=== PATIENT | female | born 2000 | race Caucasian/White ===

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

== ENCOUNTER 2020-12-14 14:39 | Inpatient (IN) ==
--- NOTE | 2020-12-14 14:55 | History & Physical Report ---
Date of Service December 14, 2020 Assessment & Plan (1) Encounter for induction of labor: 20 y/o at 39w6d (ultrasound) who presents for elective induction for IUGR. GDM. O neg. Rubella immune. GBS pos. - vitals reviewed, stable - sent from office today. EFW 21%, AC 5% (therefore IUGR), and fluid 4.9cm. head-sparing IUGR. recommended delivery >39wks. reactive NST in office. - category 1 tracing - LR 125 mL/hr - patient would like to attempt w/o epidural at first - balloon dilation performed at 1545 for unfavorable cervix - induce w/ pitocin. 1+1. - @1602: pitocin rate is at 1 mL/hr - AROM if appropriate (2) Gestational diabetes: - failed 1 hr GTT at 37 wks. 2 hr GTT 75 gram load. 213H at 1 hr. 141 at 2 hr. (11/20/20) - missed GDM dietary appointment - BSG 80 on admission - will check BSG q2h (3) Carrier of group B Streptococcus: - penicillin G ordered. 6 mu IV now dose and 3 mu IV q4h (4) Poor patient attendance of care: - patient has missed several appointments, attributes to transportation and weather - CYS has requested notification of delivery (5) Encounter for screening for COVID-19: - 12/14/20 covid neg Admission and Anticipated Discharge Date Admission Date: December 14, 2020 History of Present Illness Primary Care Provider: Mehdi Barger DO Clemencia Beckford is a 20 y/o female at 39w6d (ultrasound) who presents for elective induction for IUGR. GDM. GBS pos. complicated by GDM and GBS pos. + contractions; + movement; - fluid loss; - bloody show Labs: (06/19/20) Blood type: O neg Antibody screen: neg (11/22/20) H.2 (today) Hct: 35.2 (today) WBC: 12.79 (today) Plt: 157 (today) Rubella: immune RPR: nonreactive Gonorrhea: not detected Chlamydia: not detected HIV: neg HbSAg: neg GBS: pos (11/20/20) 1 hr GTT 50 gram load: 97 (07/29/20) 1 hr GTT 50 gram load: 173H (11/04/20) 2 hr GTT 75 gram load. 213H at 1 hr. 141 at 2 hr. (11/20/20) Other screens: -declines genetic screening Allergies Allergy/AdvReac Type Severity Reaction Status Date / Time No Known Drug Allergies Allergy Unknown NKDA Verified 12/14/20 13:36 Home Medications Medication Instructions Recorded Confirmed Type albuterol sulfate 90 mcg/actuation 2 puff INHALATION Q6H PRN 06/17/20 12/14/20 History aerosol inhaler prenat.vits,buddy,[id number] 1 tab PO DAILY 06/17/20 12/14/20 History Patient History Medical History Asthma Albuterol as needed Surgical History S/P cholecystectomy S/P wisdom tooth extraction Family History (Updated 12/14/20 @ 15:53 by Zane Powers MD) Grandmother (Maternal) Diabetes Father Hypertension Multiple sclerosis Hodgkin lymphoma Social History (Updated 12/14/20 @ 14:58 by Shakila Santos RN) Smoking Status: Never smoker Hx Alcohol Use: No Hx Substance Use: No Preferred Language: Stateless Communication Ability: Effective Visual Impairment: No Limitations Hearing Ability: Normal Beliefs That Will Affect Care: None marital status: Single marital status details: Shimon Frazier (35) [phone] Current Living Situation: Significant Other Current Living Situation Comment: The patient lives with her boyfriend and his mother. current occupational status: employed current occupation: [employer] Other Information That Helps Us Care for You: No Feels Safe at Home: Yes Safety Concerns: Feels Safe At This Time OB History g1--08/08, 41 weeks, vavd for maternal exhaustion after 2+hour push g2--01/08, 7 weeks, sab COOK MORNING History no abnl paps, stds. Review of Systems Denies fever, chills, sweats Denies shortness of breath, difficulty breathing, chest pain, palpitations, chest pressure. Denies breast pain. Denies dysuria. Denies headache. Denies nausea/vomiting. Denies weakness. + mild intermittent paresthesias in hands, not new and has had prior to Physical Exam Physical Exam: General: Alert, oriented. No acute distress. Cardiac: Regular rate and rhythm, no murmurs/rubs/gallops. Respiratory: Clear to auscultation bilaterally, no wheezes/rales/rhonchi. No increased work of breathing. Symmetrical chest rise. No respiratory distress. Abdomen: Gravid; nontender to light palpation Pelvic: Dilation loose 1 cm; Effacement 75%; Station -1 cm. Soft. Mid. Head. efw 6-[address] Billy. Lower Extremities: No lower extremity edema or swelling. No deep calf pain. Valarie's negative bilaterally Monitoring External Monitor Reviewed at 1535. External FHT and external uterine monitors used; Category I tracing; moderate FHT variability. baseline 130. + accels. No late or variable decels. Tocodynamometer Reviewed at 1535. contractions q4-6min Supervising Physician Co-Signing Physician Notes Resident Physician Supervision Note: I interviewed and examined the patient. Discussed with Dr. Powers and agree with findings and plan as documented in the note. Any exceptions or clarifications are listed here: Patient at 39 weeks with small ac most consistent with iugr, poorly treated gdm, gbs +, limited pnc. [place] planned with pitocin. arom as needed. epidural on demand. Anticipate . Category one strip. CYS notified on admission per their requesting email to the department. Documented By: Katie Billy MD, FACOG Resident Activity Tracking Resident Involvement: Resident Care Provided Care Provided: OB Delivery
[2020-12-14] MEDS ORDERED: OXYTOCIN 30 UNITS/500 ML BAG IV PRN ×3 (14:58→15:54)
[2020-12-14] MEDS ORDERED: PENICILLIN G POTASSIUM 6 MU in DEXTROSE 5% 250 ML IV STA (15:00)
[2020-12-14 15:17] LABS: Hematocrit (blood only) 35.2 % (37-47); Hemoglobin 12.2 g/dL (12.0-16.0); Mean Corpuscular Hemoglobin 31.8 pg (25-34); Mean Corpuscular Hgb Conc 34.7 g/dL (32-36); Mean Corpuscular Volume 91.7 fL (80-100); Mean Platelet Volume 13.4 fL (7.4-10.4); Platelet Count 157 K/uL (130-400); RDW Coefficient of Variation 13.8 % (11.5-14.5); RDW Standard Deviation 45.5 fL (36.4-46.3); Red Blood Count 3.84 M/uL (4.2-5.4); White Blood Count 12.79 K/uL (4.8-10.8)
[2020-12-14] MEDS: LACTATED RINGER'S 1,000 ML IV PRN ×2 (15:31→23:01)
--- NOTE | 2020-12-14 17:00 | Labor Progress Brief Note ---
Date of Service December 14, 2020 Subjective ready for bazzi Assessment & Plan (1) Encounter for induction of labor: Admission and Anticipated Discharge Date Admission Date: December 14, 2020 Inducing patient secondary to small AC at 5% and uncontrolled GDM. Patient expresses understanding of need for induction. Discussed why I think cervical ripening important. Will also start pitocin. Discussed that could just start pit but think it will go faster with both. Patient notes she would like to labor as long as she can unmedicated. Fetus is category one. Anticipate . Physical Exam Constitutional: WD/WN, vitals as above Psychiatric: A+Ox3, euthymic affect Genitourinary: cx--/-2 speculum placed and cx visualized, bazzi placed through the cervix and balloon inflated with 30cc of sterile water. patient tolerated well efm--120s with mod variability, accels to 150s, no decels toco--occasional contraction Results & Data ([facility]) Vital Signs (Past 12 Hours) Vital Signs Temp Pulse Resp BP 12/14/20 16:46 67 117/73 12/14/20 16:04 64 111/58 L 12/14/20 14:59 36.9 C 20 12/14/20 14:52 84 113/62 Coding Level of Care Code None Diagnoses Encounter for induction of labor Z34.90
[2020-12-14] MEDS: PENICILLIN G POTASSIUM 3 MU in DEXTROSE 5% 100 ML IV PRN ×2 (19:14→23:04)
--- NOTE | 2020-12-14 20:02 | Labor Progress Brief Note ---
Date of Service December 14, 2020 Subjective More uncomfortable with contractions. bulb fell out a few hours ago when going to the [facility]. Assessment & Plan (1) Encounter for induction of labor: Admission and Anticipated Discharge Date Admission Date: December 14, 2020 Explained to the FOB the reasoning behind the induction. fetus category one. offered continued pitocin as doing, arom now or later. consider ep idural--before or after arom. No hunt for anything but could more actively manage labor if she wants. They are considering her options. Physical Exam Constitutional: WD/WN, vitals as above Psychiatric: A+Ox3, euthymic affect Genitourinary: cx--380/-2 toco--q2-3min, pit at 6 efm--120s with mod variability, accels to 150s, no decels does not tolerate exam well. Results & Data ([facility]) Vital Signs (Past 12 Hours) Vital Signs Temp Pulse Resp BP 12/14/20 19:10 37.1 C 65 20 112/63 12/14/20 18:18 93 H 18 110/59 L 12/14/20 17:49 75 20 120/75 12/14/20 16:46 67 18 117/73 12/14/20 16:04 64 18 111/58 L 12/14/20 14:59 36.9 C 20 12/14/20 14:52 84 113/62 Coding Level of Care Code None Diagnoses Encounter for induction of labor Z34.90
[2020-12-14] MEDS ORDERED: ePHEDrine sulfate 50 MG/ML AMP ONE (20:13)
[2020-12-14] MEDS ORDERED: SODIUM CHLORIDE 0.9% INJ 10 ML VIAL ONE (20:13)
[2020-12-14] MEDS ORDERED: BUPIVACAINE 0.25% 30 ML VIAL ONE (20:13)
[2020-12-14] MEDS ORDERED: fentaNYL citrate 100 MCG/2 ML VIAL ONE (20:14)
[2020-12-14] MEDS ORDERED: fentaNYL 2MCG/ML ROPIVACAINE 1.25MG/ML 100 ML BAG EPI ONE (20:14)
--- NOTE | 2020-12-14 21:25 | Anesthesiology Consultation ---
Date of Service December 14, 2020 Assessment & Plan (1) Encounter for pre-operative examination: Chart Review Chart Review: Acceptable Risk for Labor Epidural Consults Requested none ASA ASA2 Proposed Anesthesia Anesthesia Type: Labor Epidural Risk / Benefits Reviewed With: PT / POA / Parent / Guardian, Accepts Plan and Informed Consent Obtained History Height/Weight Height: 5 ft Weight: 74.389 kg Allergies Allergy/AdvReac Type Severity Reaction Status Date / Time No Known Drug Allergies Allergy Unknown NKDA Verified 12/14/20 13:36 Medications Home Medications Medication Instructions Recorded Confirmed Last Taken albuterol sulfate 90 mcg/actuation 2 puff INHALATION Q6H PRN 06/17/20 12/14/20 Unknown aerosol inhaler prenat.vits,buddy,jld-whrv-hufdk 1 tab PO DAILY 06/17/20 12/14/20 12/11/20 Active Medications Generic Name Dose Route Start Last Admin Trade Name Freq PRN Reason Stop Dose Admin Penicillin G Potassium 3 mu/ 106 mls @ 100 mls/hr 12/14/20 15:00 12/14/20 20:25 Dextrose IV 12/24/20 14:59 Infused Q4H PRN Infusion Give until delivery Lactated Ringer's 1,000 mls @ 125 mls/hr 12/14/20 14:58 12/14/20 19:17 Lr IV 12/16/20 14:57 125 mls/hr .Q8H PRN Infusion L&D Protocol Protocol Oxytocin 30 units in 500 mls @ 6 mls/hr 12/14/20 15:54 12/14/20 19:50 Pitocin IV 12/16/20 15:53 0.36 units/hr .Q24H PRN 6 mls/hr Labor Induction/Augmentation Titration Protocol 0.36 UNITS/HR Past Medical History Medical History Asthma Albuterol as needed Exercise / Class Metabolic Activity II 4-5 Yardwork/Stairs/Walk up hill Past Family History Family History Grandmother (Maternal) Diabetes Father Hypertension Multiple sclerosis Hodgkin lymphoma Past Surgical History Surgical History S/P cholecystectomy S/P wisdom tooth extraction Past Anesthesia History No Hx of Anesthesia Complications and No Family Hx of Anesthesia Complications History of PONV No Hx of PONV and No Hx of Motion Sickness Social History Smoking Status: Never smoker Hx Alcohol Use: No Hx Substance Use: No Physical Exam Vital Signs Last Vital Signs Temp 98.8 F 12/14/20 19:10 Pulse 90 12/14/20 21:19 Resp 18 12/14/20 20:19 BP 123/57 L 12/14/20 20:19 Pulse Ox 98 12/14/20 21:19 ENMT Mouth: no dentition abnormality Thyromental Distance: > or= 3.5 Finger Breadths Mallampati Class: II Neck normal visual inspection Respiratory normal respiratory effort Auscultation: lungs clear to auscultation bilaterally Cardiovascular Rate/Rhythm: regular rate and regular rhythm Testing Laboratory Results 12/14/20 15:07 12/14/20 12/14/20 12/14/20 21:12 19:13 17:04 POC Glucose 80 74 80 12/14/20 15:13 POC Glucose 80
[2020-12-14] MEDS ORDERED: diphenhydrAMINE 50 MG/ML VIAL IV PRN (21:48)
[2020-12-14] MEDS ORDERED: ONDANSETRON INJ 2 MG/ML 2 ML VIAL IV PRN (21:48)
[2020-12-14] MEDS ORDERED: NALOXONE HCL 0.4 MG/1 ML VIAL/CARP IV PRN (21:48)
[2020-12-14] MEDS ORDERED: fentaNYL 2MCG/ML ROPIVACAINE 1.25MG/ML 100 ML BAG EPI PRN (21:48)
[2020-12-14] MEDS ORDERED: ePHEDrine sulfate 50 MG/ML AMP IV PRN (21:48)
[2020-12-14] MEDS ORDERED: NALOXONE HCL 1 MG in SODIUM CHLORIDE 0.9% 1000ML 1,000 ML IV PRN (21:48)
--- NOTE | 2020-12-14 23:00 | Labor Progress Brief Note ---
Date of Service December 14, 2020 Subjective comfortable with epidural Assessment & Plan (1) Encounter for induction of labor: Admission and Anticipated Discharge Date Admission Date: December 14, 2020 continue current management. fetus category one. anticipate . Physical Exam Constitutional: WD/WN, vitals as above Psychiatric: A+Ox3, euthymic affect Genitourinary: cx--4/80/-2 arom--clear toco--q2-4min, pit at 8 efm--130s with mod variability, accels to 170s, no decels Results & Data ([facility]) Vital Signs (Past 12 Hours) Vital Signs Temp Pulse Resp BP Pulse Ox 12/14/20 22:54 67 100 12/14/20 22:49 71 100 12/14/20 22:47 65 97/56 L 12/14/20 22:45 73 85/48 L 12/14/20 22:44 61 98 12/14/20 22:39 67 98 12/14/20 22:34 63 99 12/14/20 22:30 16 12/14/20 22:29 53 L 126/69 100 12/14/20 22:25 56 L 90/54 L 12/14/20 22:24 77 98 12/14/20 22:21 57 L 89/55 L 12/14/20 22:19 73 98 12/14/20 22:14 70 99/51 L 98 12/14/20 22:11 65 98/53 L 12/14/20 22:09 61 98 12/14/20 22:04 83 98/57 L 99 12/14/20 22:01 61 95/55 L 12/14/20 22:00 16 12/14/20 21:59 76 98 12/14/20 21:54 61 16 97/56 L 98 12/14/20 21:52 77 18 107/55 L 12/14/20 21:50 96 H 16 105/60 12/14/20 21:49 96 H 99 12/14/20 21:48 67 16 103/58 L 12/14/20 21:45 92 H 18 116/63 91 12/14/20 21:44 72 98 12/14/20 21:40 72 18 117/60 12/14/20 21:39 71 99 12/14/20 21:34 87 99 12/14/20 21:29 86 99 12/14/20 21:24 98 H 99 12/14/20 21:19 90 98 12/14/20 21:14 68 98 12/14/20 21:09 78 100 12/14/20 20:56 66 99 12/14/20 20:51 63 98 12/14/20 20:46 66 99 12/14/20 20:41 66 98 12/14/20 20:36 79 99 12/14/20 20:31 71 99 12/14/20 20:26 79 98 12/14/20 20:19 74 18 123/57 L 12/14/20 19:10 37.1 C 65 20 112/63 12/14/20 18:18 93 H 18 110/59 L 12/14/20 17:49 75 20 120/75 12/14/20 16:46 67 18 117/73 12/14/20 16:04 64 18 111/58 L 12/14/20 14:59 36.9 C 20 12/14/20 14:52 84 113/62 Coding Level of Care Code None Diagnoses Encounter for induction of labor Z34.90
--- NOTE | 2020-12-14 23:11 | Communication Note ---
Date of Service: December 14, 2020 Just after arom, had two deep variables to the 60s with contraction. position changed, pit off, O2 on . bs 60. Blood pressure ok. Will continue to monitor closely.
--- NOTE | 2020-12-14 23:38 | Labor Progress Brief Note ---
Date of Service December 14, 2020 Subjective comfortable Assessment & Plan (1) Encounter for induction of labor: Admission and Anticipated Discharge Date Admission Date: December 14, 2020 category two strip secondary to variables. suspect cord compression. may institute amnioinfusion. Will continue to watch carefully. Physical Exam Constitutional: WD/WN, vitals as above Psychiatric: A+Ox3, euthymic affect Genitourinary: cx--5/90/-2 fse/iupc placed fht--135 with mod variability, accels and scalp stim present, variable with contractions to 70s noted, can feel baby pressing against cervix with contraction toco--q2-4min, pit off Results & Data ([facility]) Vital Signs (Past 12 Hours) Vital Signs Temp Pulse Resp BP Pulse Ox 12/14/20 23:29 77 100 12/14/20 23:24 61 98 12/14/20 23:19 56 L 100 12/14/20 23:15 51 L 125/63 12/14/20 23:14 57 L 100 12/14/20 23:09 54 L 100 12/14/20 23:04 64 100 12/14/20 23:00 59 L 18 99/52 L 12/14/20 22:59 36.8 C 71 97 12/14/20 22:54 67 100 12/14/20 22:49 71 100 12/14/20 22:47 65 97/56 L 12/14/20 22:45 73 85/48 L 12/14/20 22:44 61 98 12/14/20 22:39 67 98 12/14/20 22:34 63 99 12/14/20 22:30 16 12/14/20 22:29 53 L 126/69 100 12/14/20 22:25 56 L 90/54 L 12/14/20 22:24 77 98 12/14/20 22:21 57 L 89/55 L 12/14/20 22:19 73 98 12/14/20 22:14 70 99/51 L 98 12/14/20 22:11 65 98/53 L 12/14/20 22:09 61 98 12/14/20 22:04 83 98/57 L 99 12/14/20 22:01 61 95/55 L 12/14/20 22:00 16 12/14/20 21:59 76 98 12/14/20 21:54 61 16 97/56 L 98 12/14/20 21:52 77 18 107/55 L 12/14/20 21:50 96 H 16 105/60 12/14/20 21:49 96 H 99 12/14/20 21:48 67 16 103/58 L 12/14/20 21:45 92 H 18 116/63 91 12/14/20 21:44 72 98 12/14/20 21:40 72 18 117/60 12/14/20 21:39 71 99 12/14/20 21:34 87 99 12/14/20 21:29 86 99 12/14/20 21:24 98 H 99 12/14/20 21:19 90 98 12/14/20 21:14 68 98 12/14/20 21:09 78 100 12/14/20 20:56 66 99 12/14/20 20:51 63 98 12/14/20 20:46 66 99 12/14/20 20:41 66 98 12/14/20 20:36 79 99 12/14/20 20:31 71 99 12/14/20 20:26 79 98 12/14/20 20:19 74 18 123/57 L 12/14/20 19:10 37.1 C 65 20 112/63 12/14/20 18:18 93 H 18 110/59 L 12/14/20 17:49 75 20 120/75 12/14/20 16:46 67 18 117/73 12/14/20 16:04 64 18 111/58 L 12/14/20 14:59 36.9 C 20 12/14/20 14:52 84 113/62 Coding Level of Care Code None Diagnoses Encounter for induction of labor Z34.90
--- NOTE | 2020-12-15 00:01 | Communication Note ---
Date of Service: December 14, 2020 Amnioinfusion started. Deep variables have resolved. fht 130s with mod variability, accels to 150s. contractions strong at 60-75 mvux, but about every 4 minutes. May need to restart pitocin to get closer together. Will recheck cervix in one hour. and if making change, continue current management. Fetus category one at present.
--- NOTE | 2020-12-15 01:14 | Labor Progress Brief Note ---
Date of Service December 15, 2020 Subjective comfortable Assessment & Plan (1) Encounter for induction of labor: Admission and Anticipated Discharge Date Admission Date: December 14, 2020 Will need to restart pitocin, starting at 1 and going up by 1 every 30 min. amnioinfusion running and successful at helping with deep variables, suspect cord compression. Occasional more moderate variables now only with some contractions, category two. otherwise fht reassuring. Will continue to monitor carefully. Physical Exam Constitutional: WD/WN, vitals as above Psychiatric: A+Ox3, euthymic affect Genitourinary: cx--//-2 toco--q2.5-4min, Mvus are not 200 , around 160-180 efm--130s wtih mod variability, accels to 150s, occasional variable , but not as deep with contractions Results & Data ([facility]) Vital Signs (Past 12 Hours) Vital Signs Temp Pulse Resp BP Pulse Ox 12/15/20 01:09 88 100 12/15/20 01:04 64 99 12/15/20 00:59 56 L 104/54 L 97 12/15/20 00:54 55 L 97 12/15/20 00:49 61 96 12/15/20 00:44 69 99 12/15/20 00:39 73 98 12/15/20 00:34 64 98 12/15/20 00:30 16 12/15/20 00:29 63 103/56 L 98 12/15/20 00:24 63 97 12/15/20 00:19 71 98 12/15/20 00:15 60 95/51 L 12/15/20 00:14 69 96 12/15/20 00:09 59 L 98 12/15/20 00:04 62 98 12/15/20 00:00 18 12/14/20 23:59 69 100/57 L 99 12/14/20 23:54 71 99 12/14/20 23:49 71 99 12/14/20 23:44 61 100/60 98 12/14/20 23:39 60 98 12/14/20 23:34 74 109/61 99 12/14/20 23:30 20 12/14/20 23:29 77 100 12/14/20 23:24 61 98 12/14/20 23:19 56 L 100 02/22/21 23:15 51 L 125/63 02/22/21 23:14 57 L 100 12/14/20 23:09 54 L 100 12/14/20 23:04 64 100 12/14/20 23:00 59 L 18 99/52 L 12/14/20 22:59 36.8 C 71 97 12/14/20 22:54 67 100 12/14/20 22:49 71 100 12/14/20 22:47 65 97/56 L 12/14/20 22:45 73 85/48 L 12/14/20 22:44 61 98 12/14/20 22:39 67 98 12/14/20 22:34 63 99 12/14/20 22:30 16 12/14/20 22:29 53 L 126/69 100 12/14/20 22:25 56 L 90/54 L 12/14/20 22:24 77 98 12/14/20 22:21 57 L 89/55 L 12/14/20 22:19 73 98 12/14/20 22:14 70 99/51 L 98 12/14/20 22:11 65 98/53 L 12/14/20 22:09 61 98 12/14/20 22:04 83 98/57 L 99 12/14/20 22:01 61 95/55 L 12/14/20 22:00 16 12/14/20 21:59 76 98 12/14/20 21:54 61 16 97/56 L 98 12/14/20 21:52 77 18 107/55 L 12/14/20 21:50 96 H 16 105/60 12/14/20 21:49 96 H 99 12/14/20 21:48 67 16 103/58 L 12/14/20 21:45 92 H 18 116/63 91 12/14/20 21:44 72 98 12/14/20 21:40 72 18 117/60 12/14/20 21:39 71 99 12/14/20 21:34 87 99 12/14/20 21:29 86 99 12/14/20 21:24 98 H 99 12/14/20 21:19 90 98 12/14/20 21:14 68 98 12/14/20 21:09 78 100 12/14/20 20:56 66 99 12/14/20 20:51 63 98 12/14/20 20:46 66 99 12/14/20 20:41 66 98 12/14/20 20:36 79 99 12/14/20 20:31 71 99 12/14/20 20:26 79 98 12/14/20 20:19 74 18 123/57 L 12/14/20 19:10 37.1 C 65 20 112/63 12/14/20 18:18 93 H 18 110/59 L 12/14/20 17:49 75 20 120/75 12/14/20 16:46 67 18 117/73 12/14/20 16:04 64 18 111/58 L 12/14/20 14:59 36.9 C 20 12/14/20 14:52 84 113/62 Coding Level of Care Code None Diagnoses Encounter for induction of labor Z34.90
[2020-12-15] MEDS: PENICILLIN G POTASSIUM 3 MU in DEXTROSE 5% 100 ML IV PRN (03:02)
[2020-12-15] MEDS: LACTATED RINGER'S 1,000 ML IV PRN ×2 (03:19→05:15)
--- NOTE | 2020-12-15 03:32 | Communication Note ---
Date of Service: December 15, 2020 Nursing called to say that she had shut the pitocin off. Strip reviewed. Was at 3. ctx were a bit better spaced and about 50mmg hg. Started having some of the deeper variables again to 60s. variability in between was good and accels present. Will start again and see if we can get to 2 and have pretty decent contractions if it will tolerate. Unfortunately we are so remote from delivery that baby will not likely tolerate deep variables for a prolonged period of time.
--- NOTE | 2020-12-15 03:47 | Communication Note ---
Date of Service: December 15, 2020 Spoke with the patient and her about the situation. Having trouble getting contractions good enough to get cervical change without having the v ariable decels and still remote from delivery. Discussed if I cannot get cervical change, will not be able to get vaginal delivery accomplished and will need c/s. Although I don't want to do that, I also want to have a good baby and they express understanding of this. Amnioinfusion continues to run. fht in 120s with mod variaibility, accels present. Offered c/s now or attempting to go back up on the pitocin again. They desire another trial. However, if this fails, I suggest moving forward with c/s. This is likely secondary to a cord compression issue, which has not responded well to amnioinfusion, or perhaps , as baby iugr, just not tolerating labor because of that. Patient and her expressed understanding of the situation.
--- NOTE | 2020-12-15 04:06 | Communication Note ---
Date of Service: December 15, 2020 Patient now flat in slight left tilt. Variables are improved, less deep and wide, but still present. However, the contractions are not particularly strong, which may be contributing to improved variables. Do not feel I can go above 1 mu of pit and explained why. Will continue to watch for a few more contractions, but if ctx don't increase in intensity for cervical change, I suggest we move onto c/s. They express understanding.
--- NOTE | 2020-12-15 04:19 | Labor Progress Brief Note ---
Date of Service December 15, 2020 Subjective noting some contraction pressure Assessment & Plan (1) Encounter for induction of labor: (2) IUGR (intrauterine growth restriction): (3) Non-reassuring electronic monitoring tracing: Admission and Anticipated Discharge Date Admission Date: December 14, 2020 Plan to move to c/s. r/b/se discussed and consent signed. They express understanding. Despite cervical change, do not think we have time to wait for vaginal delivery. Physical Exam Constitutional: WD/WN, vitals as above Psychiatric: A+Ox3, euthymic affect Genitourinary: cx--7/100/-1 toco--q3.5 min, pit at 1 efm--with most contractions, deeper variable in 60s, continued recovery to 110- 120 and good variability. Results & Data ([facility]) Vital Signs (Past 12 Hours) Vital Signs Temp Pulse Resp BP Pulse Ox 12/15/20 04:14 97 H 128/68 92 12/15/20 04:09 86 98 12/15/20 04:04 69 97 12/15/20 03:59 69 96/55 L 98 12/15/20 03:54 70 99 12/15/20 03:49 73 98 12/15/20 03:44 70 107/64 98 12/15/20 03:39 72 99 12/15/20 03:34 71 98 12/15/20 03:29 71 104/58 L 98 12/15/20 03:24 75 98 12/15/20 03:19 73 98 12/15/20 03:14 66 100/69 98 12/15/20 03:09 86 98 12/15/20 03:07 74 91 12/15/20 03:04 71 98 12/15/20 03:00 36.9 C 20 12/15/20 02:59 65 97/57 L 99 12/15/20 02:56 91 H 91 12/15/20 02:54 98 H 97 12/15/20 02:49 88 98 12/15/20 02:45 62 98/57 L 12/15/20 02:44 72 99 12/15/20 02:39 65 98 12/15/20 02:34 71 98 12/15/20 02:30 81 18 108/58 L 12/15/20 02:29 85 100 12/15/20 02:28 81 94 02/23/21 02:24 80 99 12/15/20 02:19 54 L 99 12/15/20 02:14 57 L 94/50 L 99 12/15/20 02:09 61 99 12/15/20 02:04 56 L 98 12/15/20 02:00 62 18 99/52 L 12/15/20 01:59 56 L 97 12/15/20 01:54 63 98 12/15/20 01:49 64 97 12/15/20 01:44 60 92/55 L 98 12/15/20 01:39 85 99 12/15/20 01:34 71 99 12/15/20 01:30 18 12/15/20 01:29 50 L 85/46 L 98 12/15/20 01:24 66 97 12/15/20 01:19 60 98 12/15/20 01:14 62 103/50 L 97 12/15/20 01:10 37.0 C 12/15/20 01:09 88 100 12/15/20 01:04 64 99 12/15/20 01:00 20 12/15/20 00:59 56 L 104/54 L 97 12/15/20 00:54 55 L 97 12/15/20 00:49 61 96 12/15/20 00:44 69 99 12/15/20 00:39 73 98 12/15/20 00:34 64 98 12/15/20 00:30 16 12/15/20 00:29 63 103/56 L 98 12/15/20 00:24 63 97 12/15/20 00:19 71 98 12/15/20 00:15 60 95/51 L 12/15/20 00:14 69 96 12/15/20 00:09 59 L 98 12/15/20 00:04 62 98 12/15/20 00:00 18 12/14/20 23:59 69 100/57 L 99 12/14/20 23:54 71 99 12/14/20 23:49 71 99 12/14/20 23:44 61 100/60 98 12/14/20 23:39 60 98 12/14/20 23:34 74 109/61 99 12/14/20 23:30 20 12/14/20 23:29 77 100 12/14/20 23:24 61 98 12/14/20 23:19 56 L 100 12/14/20 23:15 51 L 125/63 12/14/20 23:14 57 L 100 12/14/20 23:09 54 L 100 12/14/20 23:04 64 100 12/14/20 23:00 59 L 18 99/52 L 12/14/20 22:59 36.8 C 71 97 12/14/20 22:54 67 100 12/14/20 22:49 71 100 12/14/20 22:47 65 97/56 L 12/14/20 22:45 73 85/48 L 12/14/20 22:44 61 98 12/14/20 22:39 67 98 12/14/20 22:34 63 99 12/14/20 22:30 16 12/14/20 22:29 53 L 126/69 100 12/14/20 22:25 56 L 90/54 L 12/14/20 22:24 77 98 12/14/20 22:21 57 L 89/55 L 12/14/20 22:19 73 98 12/14/20 22:14 70 99/51 L 98 12/14/20 22:11 65 98/53 L 12/14/20 22:09 61 98 12/14/20 22:04 83 98/57 L 99 12/14/20 22:01 61 95/55 L 12/14/20 22:00 16 12/14/20 21:59 76 98 12/14/20 21:54 61 16 97/56 L 98 12/14/20 21:52 77 18 107/55 L 12/14/20 21:50 96 H 16 105/60 12/14/20 21:49 96 H 99 12/14/20 21:48 67 16 103/58 L 12/14/20 21:45 92 H 18 116/63 91 12/14/20 21:44 72 98 12/14/20 21:40 72 18 117/60 12/14/20 21:39 71 99 12/14/20 21:34 87 99 12/14/20 21:29 86 99 12/14/20 21:24 98 H 99 12/14/20 21:19 90 98 12/14/20 21:14 68 98 12/14/20 21:09 78 100 12/14/20 20:56 66 99 12/14/20 20:51 63 98 12/14/20 20:46 66 99 12/14/20 20:41 66 98 12/14/20 20:36 79 99 12/14/20 20:31 71 99 12/14/20 20:26 79 98 12/14/20 20:19 74 18 123/57 L 12/14/20 19:10 37.1 C 65 20 112/63 12/14/20 18:18 93 H 18 110/59 L 12/14/20 17:49 75 20 120/75 12/14/20 16:46 67 18 117/73 Coding Level of Care Code None Diagnoses Encounter for induction of labor Z34.90 IUGR (intrauterine growth restriction) Non-reassuring electronic monitoring tracing O36.8390
[2020-12-15] MEDS ORDERED: TERBUTALINE SULFATE 1 MG/ML VIAL ONE (04:21)
[2020-12-15] MEDS ORDERED: CITRIC ACID/SODIUM CITRATE 15 ML UDC ONE (04:23)
[2020-12-15] MEDS ORDERED: LACTATED RINGER'S 1,000 ML IV SCH ×2 (04:30→16:30)
--- NOTE | 2020-12-15 04:33 | Communication Note ---
Date of Service: December 15, 2020 Nursing unable to get fse out so I went to get it out. Her cervix is 9cm/0 station. Discussed situation again. fht improved our last couple of contra ctions with the pit off. Baselin 110-120 , mo variabiity, spon accels . Have decided will hold on c/s and recheck in a few contraction and see where we are at. If complete, will attempt pushing. If tolerates pushing, will trial. Anesthesia and peds aware. Anesthesia present.
--- NOTE | 2020-12-15 04:50 | Communication Note ---
Date of Service: December 15, 2020 examined with and without a contraction. Definitely 8cm/-1. Could feel cervix all the way around with this contraction. Baby looking better now that the pitocin is off, although still with variables, less deep and wide. great moderate variability. +scalp stim. baseline 110-120. Discussed situation improved with the baby and after discussion about proceeding with c/s or waiting a little longer, they would like to wait a little longer. Discussed may get to complete and the baby will not tolerate pushing may necessitating c/s anyway. Discussed the possibility of pushing to a place where I could place a vacuum as well as a possibility. Patient and fob aware of all possible outcomes including stat section.
--- NOTE | 2020-12-15 05:25 | Communication Note ---
Date of Service: December 15, 2020 Patient noting some pressure with contractions in belly but not in vagina. cx--8/100/-1. Cx is unchanged and baby has not moved down in the last 30 min. fht in the 110-120 with mod variability, has some variables to the 60-70 with some contractions. 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 Do not feel comfortable adding pitocin to this pattern. fetus with +scalp stim. They express understanding. I have not seen any meconium.
[2020-12-15] MEDS ORDERED: ceFAZolin 2000MG 2,000 MG/15 ML SYR IV SCH (06:00)
[2020-12-15] MEDS ORDERED: CITRIC ACID/SODIUM CITRATE 15 ML UDC PO SCH (06:00)
[2020-12-15] MEDS ORDERED: LIDOCAINE/EPINEPHRINE 2% 1:200,000 20 ML SDV ONE (06:01)
[2020-12-15] MEDS ORDERED: OXYTOCIN 10 UNITS/ML VIAL ONE (06:01)
[2020-12-15] MEDS ORDERED: MoRPHine SULFATE PF 1 MG/ML 10 ML AMP/VIAL ONE (06:01)
[2020-12-15] MEDS ORDERED: NALOXONE HCL 0.08 MG in SYRINGE 1.8 ML IV PRN (06:04)
[2020-12-15] MEDS ORDERED: NALOXONE HCL 0.4 MG/1 ML VIAL/CARP IV PRN (06:04)
[2020-12-15] MEDS ORDERED: diphenhydrAMINE 50 MG/ML VIAL IV PRN (06:04)
[2020-12-15] MEDS ORDERED: LACTATED RINGER'S 500 ML IV PRN (06:04)
[2020-12-15] MEDS ORDERED: MoRPHine SULFATE PF 1 MG/ML 10 ML AMP/VIAL INT SPINAL ONE (06:04)
[2020-12-15] MEDS ORDERED: ONDANSETRON INJ 2 MG/ML 2 ML VIAL IV PRN (06:04)
[2020-12-15] MEDS ORDERED: ePHEDrine sulfate 50 MG/ML AMP IV PRN (06:04)
[2020-12-15] MEDS ORDERED: NALOXONE HCL 1 MG in SODIUM CHLORIDE 0.9% 1000ML 1,000 ML IV PRN (06:04)
[2020-12-15] MEDS ORDERED: SODIUM CHLORIDE 0.9% 1000ML 1,000 ML IV SCH (06:15)
[2020-12-15] MEDS ORDERED: NO NARCOTICS OR SEDATIVES SCH (06:15)
[2020-12-15] MEDS ORDERED: ONDANSETRON INJ 2 MG/ML 2 ML VIAL ONE (06:20)
--- NOTE | 2020-12-15 06:45 | Anesthesiology Progress Note ---
Date of Service December 15, 2020 Anesthesia Post Procedure Vital Signs Vital Signs: Temp Pulse Resp BP Pulse Ox 12/15/20 06:39 69 92/43 L 97 12/15/20 05:34 91 H 99 12/15/20 05:30 81 116/82 12/15/20 05:29 98 H 99 12/15/20 05:24 84 99 12/15/20 05:19 68 99 12/15/20 05:14 58 L 106/61 97 12/15/20 05:09 63 97 12/15/20 05:04 65 99 12/15/20 05:00 60 20 107/58 L 12/15/20 04:59 64 97 12/15/20 04:54 71 98 12/15/20 04:53 99.0 F 12/15/20 04:49 68 98 12/15/20 04:45 84 118/64 12/15/20 04:44 76 98 12/15/20 04:39 77 96 12/15/20 04:34 85 99 12/15/20 04:31 77 109/60 12/15/20 04:29 73 98 12/15/20 04:24 81 98 12/15/20 04:20 18 12/15/20 04:19 80 99 12/15/20 04:14 97 H 128/68 92 12/15/20 04:09 86 98 12/15/20 04:04 69 97 12/15/20 04:00 18 12/15/20 03:59 69 96/55 L 98 12/15/20 03:54 70 99 12/15/20 03:49 73 98 12/15/20 03:44 70 107/64 98 12/15/20 03:39 72 99 12/15/20 03:34 71 98 12/15/20 03:30 18 12/15/20 03:29 71 104/58 L 98 12/15/20 03:24 75 98 12/15/20 03:19 73 98 12/15/20 03:14 66 100/69 98 12/15/20 03:09 86 98 12/15/20 03:07 74 91 12/15/20 03:04 71 98 12/15/20 03:00 98.4 F 20 12/15/20 02:59 65 97/57 L 99 12/15/20 02:56 91 H 91 02/23/21 02:54 98 H 97 12/15/20 02:49 88 98 12/15/20 02:45 62 98/57 L 12/15/20 02:44 72 99 12/15/20 02:39 65 98 12/15/20 02:34 71 98 12/15/20 02:30 81 18 108/58 L 12/15/20 02:29 85 100 12/15/20 02:28 81 94 12/15/20 02:24 80 99 12/15/20 02:19 54 L 99 12/15/20 02:14 57 L 94/50 L 99 12/15/20 02:09 61 99 12/15/20 02:04 56 L 98 12/15/20 02:00 62 18 99/52 L 12/15/20 01:59 56 L 97 12/15/20 01:54 63 98 12/15/20 01:49 64 97 12/15/20 01:44 60 92/55 L 98 12/15/20 01:39 85 99 12/15/20 01:34 71 99 12/15/20 01:30 18 12/15/20 01:29 50 L 85/46 L 98 12/15/20 01:24 66 97 12/15/20 01:19 60 98 12/15/20 01:14 62 103/50 L 97 12/15/20 01:10 98.6 F 12/15/20 01:09 88 100 12/15/20 01:04 64 99 12/15/20 01:00 20 12/15/20 00:59 56 L 104/54 L 97 12/15/20 00:54 55 L 97 12/15/20 00:49 61 96 12/15/20 00:44 69 99 12/15/20 00:39 73 98 12/15/20 00:34 64 98 12/15/20 00:30 16 12/15/20 00:29 63 103/56 L 98 12/15/20 00:24 63 97 12/15/20 00:19 71 98 12/15/20 00:15 60 95/51 L 12/15/20 00:14 69 96 12/15/20 00:09 59 L 98 12/15/20 00:04 62 98 12/15/20 00:00 18 12/14/20 23:59 69 100/57 L 99 12/14/20 23:54 71 99 12/14/20 23:49 71 99 12/14/20 23:44 61 100/60 98 12/14/20 23:39 60 98 12/14/20 23:34 74 109/61 99 12/14/20 23:30 20 12/14/20 23:29 77 100 12/14/20 23:24 61 98 12/14/20 23:19 56 L 100 12/14/20 23:15 51 L 125/63 12/14/20 23:14 57 L 100 12/14/20 23:09 54 L 100 12/14/20 23:04 64 100 12/14/20 23:00 59 L 18 99/52 L 12/14/20 22:59 98.2 F 71 97 12/14/20 22:54 67 100 12/14/20 22:49 71 100 12/14/20 22:47 65 97/56 L 12/14/20 22:45 73 85/48 L 12/14/20 22:44 61 98 12/14/20 22:39 67 98 12/14/20 22:34 63 99 12/14/20 22:30 16 12/14/20 22:29 53 L 126/69 100 12/14/20 22:25 56 L 90/54 L 12/14/20 22:24 77 98 12/14/20 22:21 57 L 89/55 L 12/14/20 22:19 73 98 12/14/20 22:14 70 99/51 L 98 12/14/20 22:11 65 98/53 L 12/14/20 22:09 61 98 12/14/20 22:04 83 98/57 L 99 12/14/20 22:01 61 95/55 L 12/14/20 22:00 16 12/14/20 21:59 76 98 12/14/20 21:54 61 16 97/56 L 98 12/14/20 21:52 77 18 107/55 L 12/14/20 21:50 96 H 16 105/60 12/14/20 21:49 96 H 99 12/14/20 21:48 67 16 103/58 L 12/14/20 21:45 92 H 18 116/63 91 12/14/20 21:44 72 98 12/14/20 21:40 72 18 117/60 12/14/20 21:39 71 99 12/14/20 21:34 87 99 12/14/20 21:29 86 99 12/14/20 21:24 98 H 99 12/14/20 21:19 90 98 12/14/20 21:14 68 98 12/14/20 21:09 78 100 12/14/20 20:56 66 99 12/14/20 20:51 63 98 12/14/20 20:46 66 99 12/14/20 20:41 66 98 12/14/20 20:36 79 99 12/14/20 20:31 71 99 12/14/20 20:26 79 98 12/14/20 20:19 74 18 123/57 L 12/14/20 19:10 98.8 F 65 20 112/63 12/14/20 18:18 93 H 18 110/59 L 12/14/20 17:49 75 20 120/75 12/14/20 16:46 67 18 117/73 12/14/20 16:04 64 18 111/58 L 12/14/20 14:59 98.4 F 20 12/14/20 14:52 84 113/62 Transfer of Care Handoff Completed per policy Notes Mental Status: alert / awake / arousable and participated in evaluation Patient Amnestic to Procedure: Yes Nausea / Vomiting: adequately controlled Pain: adequately controlled Airway Patency, RR, SpO2: stable & adequate BP & HR: stable & adequate Hydration State: stable & adequate Anesthetic Complications: no major complications apparent and Pt Satisfied with anesthetic care
--- NOTE | 2020-12-15 06:56 | Operative Report ---
PG Post Operative Report Pre & Post Diagnosis Operation Date: 12/15/20 04:10 <No data on this case meets the specified criteria> pre-op diagnosis-- at 39 weeks iugr nonreassuring heart tones post-op diagnosis--same true knot in the umbilical cord I identified the patient and participated in the time-out.: Yes Procedure Operation Date: 12/15/20 04:10 Primary lower transverse c/s with delivery of viable female . excision of left paratubal cyst <No data on this case meets the specified criteria> Surgeon Katie Billy MD, FACOG [employer] Mounika Ann RN Estimated Blood Loss 600 Findings Consistent with Post-Op Diagnosis viable female in abby presentation. no nuchal cord. true knot in the cord. weight 6#6oz, apgars 8/9. nl uterus/tubes ovs bilaterally, left paratubal cyst Fluids 1000cc Specimens cord blood gases Drains bazzi Anesthesia Type Labor Epidural Complications none Disposition Accompanied Patient To Recovery: Yes Disposition: L&D Indications Patient is a 20yowf with iup at 39 weeks who presented to labor and delivery with iugr , AC <5%. Uncontrolled gdm. Fetus did well until arom when the baby started having deep variables to the 60s. Helped by an amnioinfusion but when adding pitocin, variables worsened. When pit off, variables improved but contractions poor. Did make it to 8cm and we did attempt to see if would progress quickly, but did not progess and variables persisted. Description of Procedure The patient was taken to the operating room where she was identified verbally and by bracelet. She was then placed in the supine position with a leftward tilt. A Bazzi catheter had been placed sterilely. the patient was prepped and draped in a normal standard fashion. the epidural anesthetic was bolused and tested and found to be adequate. A time-out was held, identifying correct patient, procedure, positioning and preoperative antibiotics. There were no concerns. A Pfannenstiel skin incision was made with a knife and taken down to the underlying layer of fascia with the knife and Bovie electrocautery. Bleeding was attended to with Bovie cautery. The fascia was incised in the midline with the knife and taken out laterally with scissors. the superior edge of the fascial incision was grasped, elevated and the underlying layer of rectus muscle was taken off bluntly and with scissors. In a similar fashion, the inferior edge of the fascial incision was grasped, elevated and the underlying layer of rectus muscle was taken off bluntly and with scissors. The muscles were bluntly in the midline. The peritoneum was entered bluntly. The incision was then stretched. The bladder blade was placed. The vesicouterine peritoneum was identified, entered with scissors and taken out laterally with scissors. The bladder flap was created digitally A hysterotomy incision was scored with a knife and the incision was stretched cephalad and caudad with the hot punch press operator's fingers. Clear fluid was noted. The operators hand was placed into the incision and the head was delivered atraumatically. No nuchal cord. The nose and mouth were bulb suctioned. The fetus cried on the field. the rest of the infant was then delivered without difficulty. The nose and mouth were again bulb suctioned. the cored was clamped and cut and the was then handed off to the awaiting milk hauler for drying and attention. Cord blood and segment were obtained. There was noted to be a true knot in the cord and straight. The placenta was manually extracted. the uterus was exteriorized and cleared of all clot and debris with moistened laparotomy sponges. The hysterotomy incision was repaired in two layers, the first in a running locked layer, the second in an imbricating layer. Hemostasis was noted to be good. Posterior cul-de-sac was irrigated and cleared of all clot and debris. The hysterotomy incision was again inspected and found to be hemostatic. the uterus was reinteriorized. Hysterotomy incision was again inspected, one figure of eight suture required an d found to be hemostatic. Rectus muscles were reapproximated with several interrupted stitches of 0 Vicryl. The fascia was then reapproximated with 0 Vicryl starting at the edges and meeting in the midline. The subcuticular tissues were copiously irrigated and bleeding was attended to with cautery. The skin was then closed with 4-0 Vicryl in a subcuticular fashion. All sponge , lap and needle counts were correct x 2. Patient taken to the recovery room in stable condition. I attest to the content of the Intraoperative Record and any orders documented therein. Any exceptions are noted below.
[2020-12-15 07:06] LABS: Base Excess Cord Arterial Bld -2.1 mEq/L (-9-1.8); CO2 Cord Arterial Blood 38 mmHg (39.1-73.5); HCO3 Cord Arterial Blood 22 mmol/L (19.7-28.5); PO2 Cord Arterial Blood 26 mmHg (4.1-31.7); pH Cord Arterial Blood 7.39 (7.1-7.38)
[2020-12-15 07:10] LABS: Base Excess Cord Venous Blood -1.5 mEq/L (-7.7-1.9); Cord Venous Blood HCO3 22 mmol/L (18.4-26.8); Cord Venous Blood PCO2 34 mmHg (30.4-57.2); Cord Venous Blood PO2 34 mmHg (14.1-43.3); Cord Venous Blood pH 7.43 (7.20-7.44)
[2020-12-15] MEDS: KETOROLAC 30 MG/ML VIAL IV PRN ×3 (07:35→23:56)
[2020-12-15] MEDS ORDERED: HYDROCORTISONE ACETATE 25 MG SUPP PR PRN (07:58)
[2020-12-15] MEDS ORDERED: SENNA 8.6 MG TAB PO PRN (07:58)
[2020-12-15] MEDS ORDERED: SUPERCREAM 0.870% 15 GM JAR EXT PRN (07:58)
[2020-12-15] MEDS ORDERED: DIPHTHERIA/TETANUS/PERTUSSIS 0.5 ML SYR/VIAL IM ONE (07:58)
[2020-12-15] MEDS ORDERED: BENZOCAINE 20% AER SPR 82.5 GM CAN EXT PRN (07:58)
[2020-12-15] MEDS ORDERED: MAGNESIUM HYDROXIDE SUSP 30 ML UDC PO PRN (07:58)
[2020-12-15] MEDS: MEPERIDINE HCL 25 MG/ML CARP/VIAL IV PRN ×4 (08:27→21:19)
[2020-12-15] MEDS ORDERED: OXYTOCIN 20 UNITS in LACTATED RINGER'S 1,000 ML IV SCH (08:30)
[2020-12-15] MEDS: DOCUSATE SODIUM 100 MG CAP PO SCH ×2 (09:51→21:20)
[2020-12-15] MEDS: SIMETHICONE 80 MG CHEW PO SCH ×4 (09:52→21:19)
[2020-12-15] MEDS: PRENATAL VITAMIN 1 TAB PO SCH (09:52)
[2020-12-15] MEDS: FERROUS SULFATE 325 MG TAB PO SCH (09:52)
[2020-12-16] MEDS ORDERED: DC INTRASPINAL MORPHINE ONE (00:04)
[2020-12-16] MEDS ORDERED: diphenhydrAMINE 50 MG/ML VIAL IV PRN (00:05)
[2020-12-16] MEDS ORDERED: ONDANSETRON INJ 2 MG/ML 2 ML VIAL IV PRN (00:05)
[2020-12-16] MEDS ORDERED: PROMETHAZINE HCL 25 MG in SODIUM CHLORIDE 0.9% 50 ML IV PRN (00:05)
[2020-12-16] MEDS ORDERED: diphenhydrAMINE Capsule 25 MG CAP PO PRN (00:05)
[2020-12-16] MEDS ORDERED: MEPERIDINE HCL 50 MG/ML CARP IV PRN (00:05)
[2020-12-16] MEDS ORDERED: KETOROLAC 30 MG/ML VIAL IV PRN (00:05)
[2020-12-16] MEDS: oxyCODONE/ACETAMINOPHEN 5mg/325mg TAB PO PRN ×5 (04:20→20:26)
[2020-12-16] MEDS: IBUPROFEN 600 MG TAB PO PRN ×5 (04:22→20:25)
--- NOTE | 2020-12-16 05:54 | Obstetrical Progress Note ---
Date of Service <Zane Powers MD - Last Filed: 12/16/20 06:58> December 16, 2020 Assessment & Plan <Zane Powers MD - Last Filed: 12/16/20 06:58> (1) state: 20 y/o who is s/p pLTCS at 40w and is POD1. SGA, GDM. O neg. Rubella immune. GDM. GBS pos (received 4 doses PCN). C/S because nonreassuring FHT after AROM - vitals reviewed at 0315. stable. 93/55 (MAP 68) last night and 104/54 (MAP 73) at 0315. asymptomatic - lochia small - plan: ambulate and remove bandage later today. advance diet as tolerated - continue routine care - tentative dispo tomorrow. transitioned to PO pain meds Subjective <Zane Powers MD - Last Filed: 12/16/20 06:58> Passing Gas:: Yes Diet Tolerance:: regular diet (has only eaten crackers so far) Lochia:: Small Feeding Type:: breast feeding Current Pain Level(1-10): 6 bazzi removed. has not yet voided. has not yet ambulated. Review of Systems Denies fever, chills, sweats Denies shortness of breath, chest pain, palpitations. Denies breast pain. Denies dysuria. Denies headache or changes in vision. Denies nausea/vomiting. Denies numbness, tingling, weakness. denies calf pain no mood problems this morning. yesterday night, felt depressed and panicky. Physical Exam <Zane Powers MD - Last Filed: 12/16/20 06:58> General: Alert, oriented. No acute distress. Cardiac: Regular rate and rhythm, no murmurs/rubs/gallops. Respiratory: Clear to auscultation bilaterally. No respiratory distress. Abdomen: , soft. Appropriately tender. Uterus: Please see attending exam for palpation of fundal height. LTCS incision is bandaged, bandage is clean/dry/intact. Lower Extremities: No lower extremity edema or swelling. No deep calf pain. Valarie's negative bilaterally. Results & Data ([facility]) <Zane Powers MD - Last Filed: 12/16/20 06:58> Vital Signs (Past 12 Hours) Vital Signs Temp Pulse Resp BP Pulse Ox 12/16/20 03:15 36.9 C 67 18 104/57 L 96 12/15/20 23:50 37.0 C 63 18 93/55 L 99 12/15/20 23:45 18 99 12/15/20 22:30 18 99 12/15/20 21:30 18 99 12/15/20 20:40 37.0 C 81 18 103/68 98 12/15/20 20:20 18 98 12/15/20 19:15 18 98 12/15/20 18:07 18 100 Medications Administered <Jennifer Boyer MD, FACOG - Last Filed: 12/16/20 08:12> Co-Signing Physician Notes Resident Physician Supervision Note: I interviewed and examined the patient. Discussed with Dr. Powers and agree with findings and plan as documented in the note. Any exceptions or clarifications are listed here: Dressing removed and incision is clean dry & intact. Documented By: Jennifer Boyer MD, FACOG Resident Activity Tracking <Zane Powers MD - Last Filed: 12/16/20 06:58> Resident Involvement: Resident Care Provided Care Provided: OB Delivery
[2020-12-16 06:48] LABS: Hematocrit (blood only) 28.6 % (37-47); Hemoglobin 9.7 g/dL (12.0-16.0); Mean Corpuscular Hemoglobin 31.4 pg (25-34); Mean Corpuscular Hgb Conc 33.9 g/dL (32-36); Mean Corpuscular Volume 92.6 fL (80-100); Mean Platelet Volume 13.2 fL (7.4-10.4); Platelet Count 127 K/uL (130-400); Red Blood Count 3.09 M/uL (4.2-5.4); White Blood Count 11.94 K/uL (4.8-10.8)
[2020-12-16 06:49] LABS: Basophils # (auto) 0.03 K/uL (0-0.2); Basophils % (auto) 0.3 %; Eosinophils # (auto) 0.24 K/uL (0-0.5); Immature Granulocytes # (auto) 0.02 K/uL (0.00-0.02); Immature Granulocytes % (auto) 0.2 %; Lymphocytes # (auto) 2.53 K/uL (1.2-3.4); Lymphocytes % (auto) 21.2 %; Monocytes # (auto) 0.93 K/uL (0.11-0.59); Monocytes % (auto) 7.8 %; Neutrophils # (auto) 8.19 K/uL (1.4-6.5); Neutrophils % (auto) 68.5 %; Platelet Estimate Decreased (Normal)
[2020-12-16] MEDS: SIMETHICONE 80 MG CHEW PO SCH ×4 (08:39→20:27)
[2020-12-16] MEDS: PRENATAL VITAMIN 1 TAB PO SCH (08:40)
[2020-12-16] MEDS: FERROUS SULFATE 325 MG TAB PO SCH (08:40)
[2020-12-16] MEDS: DOCUSATE SODIUM 100 MG CAP PO SCH ×2 (08:40→20:27)
[2020-12-16] MEDS ORDERED: bisacodyL 5 MG TABEC PO SCH (20:00)
[2020-12-17] MEDS: IBUPROFEN 600 MG TAB PO PRN ×5 (00:45→16:56)
[2020-12-17] MEDS: oxyCODONE/ACETAMINOPHEN 5mg/325mg TAB PO PRN ×5 (00:45→16:56)
--- NOTE | 2020-12-17 05:55 | Obstetrical Progress Note ---
Date of Service <Zane Powers MD - Last Filed: 12/17/20 07:19> December 17, 2020 Assessment & Plan <Zane Powers MD - Last Filed: 12/17/20 07:19> (1) state: 20 y/o who is s/p pLTCS at 40w and is POD2. SGA, GDM. O neg. Rubella immune. GDM. GBS pos (received 4 doses PCN). C/S because nonreassuring FHT after AROM. - Hb 12.2->9.7->9.5. asymptomatic - Plt 127 on 12/18/20. 157 on admission - lochia small - - ambulated, + flatus, and eating ok - pain controlled on Percocets - continue routine care - tentative dispo today. per classification case manager note, CYS at bedside yesterday. ok for dispo Subjective <Zane Powers MD - Last Filed: 12/17/20 07:19> Ambulation: ambulating normally Voiding: no voiding problems Passing Gas:: Yes (no BM yet.) Diet Tolerance:: regular diet Lochia:: Small Feeding Type:: breast feeding (didn't feed much yesterday so supplemented w/ some formula. no other problems) Current Pain Level(1-10): 2 Patient feels ready for home today. Review of Systems Denies fever, chills, sweats Denies shortness of breath, chest pain, palpitations. Denies breast pain. Denies dysuria. Denies headache or changes in vision. Denies nausea/vomiting. Denies numbness, tingling, weakness. Denies calf pain. + some depressed mood, mostly at night when unaccompanied. Physical Exam <Zane Powers MD - Last Filed: 12/17/20 07:19> General: Alert, oriented. No acute distress. Cardiac: Regular rate and rhythm, no murmurs/rubs/gallops. Respiratory: Clear to auscultation bilaterally, no wheezes/rales/rhonchi. No respiratory distress. Abdomen: , soft, nontender. Uterus: Uterine fundus firm, palpable 2cm above umbilicus. LTCS incision exam deferred. Please see attending exam. Lower Extremities: No lower extremity edema or swelling. Mild puffy appearance.No deep calf pain. Valarie's negative bilaterally. Results & Data ([facility]) <Zane Powers MD - Last Filed: 12/17/20 07:19> Vital Signs (Past 12 Hours) Vital Signs Temp Pulse Resp BP BP Pulse Ox 12/16/20 23:05 37 C 58 L 18 114/69 100 12/16/20 21:05 37 C 59 L 18 121/69 98 Medications Administered <Avis Figueroa MD, FACOG - Last Filed: 12/17/20 07:43> Co-Signing Physician Notes Resident Physician Supervision Note: I was present with Dr. Powers during the history and exam. I discussed the case with the resident and agree with the findings and plan as documented in the note. Any exceptions or clarifications are listed here: pt doing well overall, , pain well controlled on po meds. admits to some uterine tenderness but says its much improved from yesterday. no fever. hgb stable. pe: incision c/d/i with dried blood on steris, ff 2 down mild appropriate tenderness, ext nt calves. will plan d/c later today, instructions reviewed. f/u 6wks pp. rhogam given. discussed her mood, she has therapy apt planned for december, she will contact pcp about followup and she contracts for safety to call us with any worsening or persistent or concerning s/sx. Documented By: Avis Figueroa MD, FACOG Resident Activity Tracking <Zane Powers MD - Last Filed: 12/17/20 07:19> Resident Involvement: Resident Care Provided Care Provided: OB Delivery
[2020-12-17 06:10] LABS: Hematocrit (blood only) 27.6 % (37-47); Hemoglobin 9.5 g/dL (12.0-16.0)
[2020-12-17] MEDS ORDERED: bisacodyL 10 MG SUPP PR PRN (06:43)
[2020-12-17] MEDS: DOCUSATE SODIUM 100 MG CAP PO SCH (08:39)
[2020-12-17] MEDS: FERROUS SULFATE 325 MG TAB PO SCH (08:39)
[2020-12-17] MEDS: SIMETHICONE 80 MG CHEW PO SCH ×3 (08:39→16:56)
[2020-12-17] MEDS: PRENATAL VITAMIN 1 TAB PO SCH (08:39)
[2020-12-17] MEDS ORDERED: PERCOCET 5/325MG HOMEPACK PO ONE (20:30)
--- NOTE | 2020-12-19 08:13 | Discharge Summary (DS) ---
ADMISSION DIAGNOSES: 1. Intrauterine at 39 and 6/7th weeks. 2. Poorly controlled gestational diabetes. 3. Intrauterine growth restriction. 4. Group B Streptococcus positive. DISCHARGE DIAGNOSES: 1. Intrauterine at 39 and 6/7th weeks. 2. Poorly controlled gestational diabetes. 3. Intrauterine growth restriction. 4. Group B Streptococcus positive. 5. Nonreassuring heart testing PROCEDURES: Primary low transverse section for nonreassuring heart testing. HISTORY OF PRESENT ILLNESS: The patient is a 20-year-old white female 3, para 1-0-1-1 at 39-6/7th weeks who presents for induction secondary to IUGR. The patient has had poor care throughout this . She was diagnosed with gestational diabetes, very late in the at 37 weeks and has had poor control and noncompliance with care. She came in for her appointment today with an ultrasound for growth showing estimated weight in the 25th percentile, but the AC in the less than 5th percentile and recommendation was for delivery secondary to IUGR. She is GBS positive. For the rest of the patient's history and physical, please see her history and physical. ASSESSMENT: This is a 3, para 1-0-1-1 with a history of a previous vacuum-assisted vaginal delivery for maternal exhaustion after 2 hours push who presents for induction secondary to intrauterine growth restriction with an abdominal circumference less than the 5th percentile likely secondary to poorly controlled gestational diabetes. HOSPITAL COURSE: The patient was admitted. She underwent a Laguna bulb for cervical ripening because her cervix at admission was 1 cm dilated, 75% effaced, -1 station. Pitocin was started at this time as well. The patient received adequate treatment for GBS positive status. The Laguna fell out and at approximately 22:58 after she had received an epidural for pain management, she was found to be 4, 80 and -2 and underwent amniotomy for augmentation for clear fluid. She was geetha every 2-4 minutes with Pitocin at 8 and had heart tones in the 130s with moderate variability, accels to 170s and no decels. Immediately upon AROM the fetus started having deep variables. These were attended to with an amnioinfusion and did get better for some time. A scalp electrode and IUPC were placed and at that time an amnioinfusion was started. The deep variables did resolve. The Pitocin had been turned off and she was having a contraction about every 4 minutes, so the decision was made to restart the Pitocin and recheck the cervix in 1 hour. The decision was made to monitor and not to restart the Pitocin, to monitor to see if her cervix would change. She was rechecked in an hour and her cervix was still 5, 90, and -2. There were occasional variables, but not as deep with 130s and moderate variability and spontaneous accels, so the Pitocin was restarted. Unfortunately, we were not able to get the Pitocin to the place where we could get adequate contractions, we only got it up to 3 before the baby started having the deep variable decels into the 60s again. I spoke to the patient and her about the situation describing what would happen and my concern the amnioinfusion continue to run the baby's heart rate, baseline was good with moderate variability, accels present and so I felt the baby was good enough that we could restart the Pitocin again after it was stopped. I also offered a at that time. They desired another trial of Pitocin; however, if that failed, I suggested that we were going to need to proceed with section. Unfortunately, was restarted Pitocin only to 1 milliunit every time we got a contraction that was reasonable at 50 milliunits. We had deep variable decels and so I suggested delivery. Just prior to the moving for the delivery, I checked the cervix and it was 7, 100 and -1. Pitocin was at 1. There were some variables in the 60s with continued good recovery and good variability. After discussion, we decided to just monitor and see what would happen. She did progress to about 8 cm and 0 station. Unfortunately, the deep variables persisted and she did not make further change after that, the Pitocin was off by this time. We waited a little longer and rechecked her without significant change and so with continued variable decels some of them into the 60s-70s and so we decided to proceed with delivery. The patient underwent a primary low transverse section to deliver a viable female . There was a true knot in the umbilical cord and the umbilical cord did not have a lot of [place]'s jelly and was straight and not coiled. Weight was 6 pounds 6 at ounces, Apgars were 8 and 9. Normal uterus, tubes, and ovaries were noted bilaterally. There was a small left paratubal cyst that was excised and sent for pathology. The patient's postoperative course was uncomplicated. The patient tolerated a regular diet. Voided after the removal of her Laguna catheter, ambulated without difficulty and had her pain well controlled on oral pain medications. Her hemoglobin did drop from 12.2-9.7. She is . She does have a history of depression and has outpatient management. She desired discharge on day #2 and will have close followup in the office in a 6-week appointment.
== END 2020-12-17 20:50 | disposition home or self-care (01) | DRG 788 ==
LOC: 4S1 14:39 → 4S2 12-15 09:15